=== PATIENT | female | born 1985 | race Caucasian/White ===

== ENCOUNTER 2018-05-05 10:43 | Outpatient (CLI) | payer BC, OTHER ==
[~2018-05-05] VITALS: Ht 157.5 cm; Wt 56.5 kg
[2018-05-05 11:00] VITALS: BP 129/79
[2018-05-05 11:14] LABS: BILIRUBIN,URINE NEGATIVE (NEGATIVE); CLARITY,URINE CLEAR; COLOR,URINE YELLOW; GLUCOSE, URINE (UA) NEGATIVE (NEGATIVE); KETONES,URINE NEGATIVE (NEGATIVE); LEUKOCYTE ESTERASE ,URINE NEGATIVE (NEGATIVE); NITRITE,URINE NEGATIVE (NEGATIVE); PH,URINE 7 (5-9); PROTEIN,URINE NEGATIVE (NEGATIVE); UROBILINOGEN,URINE NORMAL (NORMAL)
[2018-05-05 11:24] LABS: BACTERIA,URINE FEW /HPF; WBC,URINE 0-2 /HPF
--- NOTE | 2018-05-05 12:00 | History & Physical-OB ---
OB - Chief Complaint & HPI Date/Time Date of Admission: Date of Admission: Chief Complaint/History Hx : 2 Hx Para: 0 Expected Date of Delivery: Jul 31, 2018 Gestational Age in Weeks: 27 Allergies and Home Medications Allergies Coded Allergies: No Known Drug Allergies (Unverified , 05/05/18) OB - History Hx of Present Care: Yes Obstetrical History Hx : 2 Hx Para: 0 Hx Total # of Abortions (Spona: 1 Social History/Family History Recent Infectious Disease Expo: No OB - Admission Exam Labs Laboratory Tests Test 05/05/18 11:00 Range/Units Urine Color YELLOW Urine Clarity CLEAR Urine pH 7 5-9 Urine Specific [place] 1.005 L 1.016-1.022 Urine Protein NEGATIVE NEGATIVE Urine Glucose (UA) NEGATIVE NEGATIVE Urine Ketones NEGATIVE NEGATIVE Urine Nitrite NEGATIVE NEGATIVE Urine Bilirubin NEGATIVE NEGATIVE Urine Urobilinogen NORMAL NORMAL MG/DL Urine Leukocyte Esterase NEGATIVE NEGATIVE Urine RBC (Auto) NEGATIVE NEGATIVE Urine RBC NONE /HPF Urine WBC 0-2 /HPF Urine Squamous Epithelial Cells 10-25 H /HPF Urine Crystals NONE /LPF Urine Bacteria FEW H /HPF Urine Casts NONE /LPF Urine Mucus NEGATIVE /LPF Urine Culture Indicated NO LAITH ALBA DO May 05, 2018 12:00
--- NOTE | 2018-05-05 12:49 | Diagnostic Imaging Report ---
INDICATION: Premature rupture of membranes. FINDINGS: Biophysical profile was performed. A single live fetus is present. heart rate was recorded at 147 beats per minute. Amniotic fluid index is 14.9 cm. Overall, biophysical profile score is normal at 8 out 8. IMPRESSION: Normal biophysical profile score of 8 out 8. Dictated by: Dictated on workstation # [id number]
--- NOTE | 2018-05-09 13:41 | Physician Query-Final Dx ---
LOBITO MONTALVO 05/09/18 1341: Clinic Account Progress/Dx Physician Query: Please give diagnosis Date of Service May 05, 2018 at 10:43 LAITH ALBA DO 05/10/18 1745: Clinic Account Progress/Dx DIAGNOSIS: Diagnosis Vaginal Discharge 27 4/7 weeks Gestation History of loss, currently Hypothyroidism LOBITO OMNTALVO May 09, 2018 13:41 LAITH ALBA DO May 10, 2018 17:45
== END 2018-05-05 12:45 | disposition home or self-care (01) ==
LOC: LDRP 10:43 → WSo 10:43
PROVIDERS: ATTEND Family Medicine
DX: O99.89 Other specified diseases and conditions complicating pregnancy, childbirth and the puerperium (principal); N89.8 Other specified noninflammatory disorders of vagina; O99.282 Endocrine, nutritional and metabolic diseases complicating pregnancy, second trimester; E03.9 Hypothyroidism, unspecified; Z3A.27 27 weeks gestation of pregnancy
CPT/HCPCS: 76819; 81000; 99213

== ENCOUNTER 2018-06-16 17:24 | Outpatient (CLI) | payer BC ==
[2018-06-16 18:08] VITALS: BP 136/82
--- NOTE | 2018-06-20 15:03 | Physician Query-Final Dx ---
Clinic Account Progress/Dx Physician Query: Please give diagnosis Please provide dx and weeks of gestation. Date of Service Jun 16, 2018 at 17:24 EVAN SAGE Jun 20, 2018 15:03
== END 2018-06-16 18:05 | disposition home or self-care (01) ==
LOC: LDRP 17:24 → WSo 17:24
PROVIDERS: ATTEND Family Medicine
CPT/HCPCS: 99212

== ENCOUNTER → 2018-07-29 | Outpatient (CLI) | payer BC ==
[2018-07-29 13:38] LABS: BASOPHILS % (AUTO) 0 % (0-10); EOSINOPHILS # (AUTO) 0.1 10^3/uL (0.0-0.3); EOSINOPHILS % (AUTO) 1 % (0-10); HEMATOCRIT 42 % (35-52); HEMOGLOBIN 13.9 G/DL (11.5-16.0); LYMPHOCYTES # (AUTO) 2.5 X 10^3 (1.0-4.0); LYMPHOCYTES % (AUTO) 37 % (12-44); MEAN CORPUSCULAR HEMOGLOBIN 30 PG (25-34); MEAN CORPUSCULAR HGB CONC 33 G/DL (32-36); MEAN CORPUSCULAR VOLUME 90 FL (80-99); MEAN PLATELET VOLUME 8.6 FL (7.4-10.4); MONOCYTES # (AUTO) 0.5 X 10^3 (0.0-1.0); MONOCYTES % (AUTO) 7 % (0-12); NEUTROPHILS # (AUTO) 3.7 X 10^3 (1.8-7.8); NEUTROPHILS % (AUTO) 55 % (42-75); PLATELET COUNT 474 10^3/uL (130-400); RED CELL DISTRIBUTION WIDTH 14.9 % (10.0-14.5); WHITE BLOOD COUNT 6.8 10^3/uL (4.3-11.0)
== END ==
LOC: LAB 13:27
PROVIDERS: ATTEND Obstetrics & Gynecology
DX: R10.2 Pelvic and perineal pain (principal)
CPT/HCPCS: 36415; 85025

== ENCOUNTER 2018-09-08 10:00 | Emergency (ER) | payer BC, MEDICAID ==
[~2018-09-08] VITALS: Ht 157.5 cm; Wt 54.4 kg
--- OUTSIDE RECORDS SUMMARY | 2018-09-08 10:38 | XMS REPORT | Continuity of Care Document ---
Author Author [facility] Organization [facility] Address Unknown Phone Unavailable Allergies Active Description Code Type Severity Reaction Onset Reported/Identified Relationship to Patient Clinical Status Yes No Known Drug Allergies [id number] Drug Allergy Unknown N/A 05/05/2018 Yes tetanus and diphtheria toxoids tetanus and diphtheria toxoids Drug Allergy Severe RACING HEART, RING AROUND SITE 07/16/2018 Medications There is no data. Problems Date Dx Coded Attending Type Code Diagnosis Diagnosed By 05/05/2018 Ot E03.9 HYPOTHYROIDISM, UNSPECIFIED 05/05/2018 Ot N89.8 OTHER SPECIFIED NONINFLAMMATORY DISORDER 05/05/2018 Ot O99.282 ENDO, NUTRITIONAL AND METAB DISEASES COM 05/05/2018 Ot O99.89 OTH DISEASES AND CONDITIONS COMPL PREG/C 05/05/2018 Ot Z3A.27 27 WEEKS GESTATION OF 06/16/2018 ROOPA GÓMEZ DO Ot O36.8130 DECREASED MOVEMENTS, THIRD TRIMEST 06/16/2018 ROOPA GÓMEZ DO Ot Z3A.33 33 WEEKS GESTATION OF 07/15/2018 ROOPA GÓMEZ DO Ot O36.8130 DECREASED MOVEMENTS, THIRD TRIMEST 07/15/2018 GÓMEZ ROOPA LOPEZ Ot Z3A.33 33 WEEKS GESTATION OF 07/16/2018 Nieves Mc MD E03.9 HYPOTHYROIDISM, UNSPECIFIED 07/16/2018 Nieves Mc MD J06.9 ACUTE UPPER RESPIRATORY INFECTION, UNSPECIFIED 07/16/2018 Nieves Mc MD O13.3 GESTATIONAL HTN W/O SIGNIFICANT PROTEINURIA, THIRD TRIMESTER 07/16/2018 Nieves Mc MD O13.4 GESTATNL HTN WITHOUT SIGNIFICANT PROTEIN, COMP CHI 07/16/2018 Nieves Mc MD O42.02 FULL-TERM DERRICK ROM, ONSET LABOR WITHIN 2 07/16/2018 Nieves Mc MD O70.1 SECOND DEGREE PERINEAL LACERATION DURING DELIVERY 07/16/2018 Nieves Mc MD O99.284 ENDOCRINE, NUTRITIONAL AND METABOLIC DISEASES COMP 07/16/2018 Nieves Mc MD O99.513 DISEASES OF THE RESP SYS COMP , THIRD TRI 07/16/2018 Nieves Mc MD Z37.0 SINGLE LIVE 07/16/2018 Nieves Mc MD Z3A.37 37 WEEKS GESTATION OF 08/01/2018 NIEVES MC MD, Ot R10.2 PELVIC AND PERINEAL PAIN 08/01/2018 NIEVES MC MD, Ot R10.2 PELVIC AND PERINEAL PAIN Procedures Code Description Performed By Performed On [id number] REPAIR PERINEUM MUSCLE, OPEN APPROACH Gwen Chavez MD 07/16/2018 [id number] DRAINAGE OF AMNIOTIC FL, THERAP FROM POC, VIA OPEN Gwen Chavez MD [id number] DELIVERY OF PRODUCTS OF CONCEPTION, EXTERNAL APPRO Gwen Chavez MD [id number] INTRODUCTION OF OTH HORMONE INTO PERIPH VEIN, PERC Gwen Chavez MD 07/16/2018 Results Test Result Range Complete urinalysis with reflex to culture - 05/05/18 11:00 Urine color determination YELLOW NRG Urine clarity determination CLEAR NRG Urine pH measurement by test strip 7 5-9 Specific gravity of urine by test strip 1.005 1.016- 1.022 Urine protein assay by test strip, semi-quantitative NEGATIVE NEGATIVE Urine glucose detection by automated test strip NEGATIVE NEGATIVE Erythrocytes detection in urine sediment by light microscopy NEGATIVE NEGATIVE Urine ketones detection by automated test strip NEGATIVE NEGATIVE Urine nitrite detection by test strip NEGATIVE NEGATIVE Urine total bilirubin detection by test strip NEGATIVE NEGATIVE Urine urobilinogen measurement by automated test strip (mass/volume) NORMAL NORMAL Urine leukocyte esterase detection by dipstick NEGATIVE NEGATIVE Automated urine sediment erythrocyte count by microscopy (number/high power field) NONE NRG Automated urine sediment leukocyte count by microscopy (number/high power field ) [HPF] NRG Bacteria detection in urine sediment by light microscopy FEW NRG Squamous epithelial cells detection in urine sediment by light microscopy 10-25 NRG Crystals detection in urine sediment by light microscopy NONE NRG Casts detection in urine sediment by light microscopy NONE NRG Mucus detection in urine sediment by light microscopy NEGATIVE NRG Complete urinalysis with reflex to culture NO NRG UR PROTEIN/CREATININE RATION - 07/16/18 13:20 UR CREATININE COMMENT RANDOM UR PROTEIN COMMENT RANDOM UR TOTAL PROTEIN LEVEL < 5.0 mg/dL 0.0-11.9 UR CREATININE LEVEL < 13.0 mg/dL 44-467 UR PROTEIN/CREATININE RATIO TEST NOT PERFORMED mg/gm < 200 CBC - 07/16/18 13:20 MEAN CELL HGB 29.4 pg 27.0-33.0 MEAN CELL HGB CONCENTRATION 33.4 g/dL 32.0-37.0 MEAN CELL VOLUME 88.1 fl 80.0-100.0 MEAN PLATELET VOLUME 11.2 fl 8.5-10.9 RED BLOOD CELL 4.28 m/cumm 4.00-6.00 RED CELL DISTRIBUTION WIDTH 15.7 % 11.0-15.6 WHITE BLOOD CELL 9.6 k/cumm 5.0-10.0 HEMOGLOBIN 12.6 gm/dL 12.0-16.0 HEMATOCRIT 37.7 % 37.0-47.0 NRBC % 0.0 /100 WBC 0.0-0.0 PLATELET COUNT 194 k/cumm 150-400 METABOLIC PANEL, COMPREHN - 07/16/18 13:20 POTASSIUM 3.6 mmol/L 3.5-5.3 EST GFR (MDRD) > 60 mL/min > 59 ANION GAP 8 mmol/L 5-15 EST CrCl (CG) > 60 mL/min > 59 GLUCOSE 95 mg/dL 70-99 CALCIUM 8.4 mg/dL 8.5-10.1 BLOOD UREA NITROGEN 8 mg/dL 7-20 CREATININE 0.6 mg/dL 0.6-1.0 SODIUM 138 mmol/L 135-148 CHLORIDE 107 mmol/L 98-110 AST/SGOT 25 Units/L 10-37 ALT/SGPT 28 Units/L < 66 CARBON DIOXIDE 23 mmol/L 21-32 TOTAL PROTEIN 7.4 gm/dL 6.4-8.2 ALBUMIN 3.0 gm/dL 3.4-5.0 BILI TOTAL 0.1 mg/dL 0.0-1.0 ALKALINE PHOSPHATASE TOTAL 148 IU/L 45-117 URIC ACID - 07/16/18 13:20 URIC ACID 5.1 mg/dL 2.6-6.0 LACTATE DEHYDROGENASE (LDH/LD) - 07/16/18 13:20 LACTATE DEHYDROGENASE (LDH/LD) 187 Units/L 81-234 CORD VENOUS BLOOD GAS - 07/17/18 18:20 VENOUS CORD BLOOD BASE EXCESS -3.8 meq/L -5.8-0.7 COMMENT VENOUS VENOUS CORD BLOOD HCO3 22.3 meq/L 17.4-25.4 VENOUS CORD BLOOD PCO2 44 mm Hg 28-57 VENOUS CORD BLOOD PH 7.32 7.23-7.46 VENOUS CORD BLOOD PO2 31 mm Hg 15-42 VENOUS CORD BLOOD O2 SAT 53 % 14-75 CORD ARTERIAL BLOOD GAS - 07/17/18 18:20 ARTERIAL CORD BLD BASE EXCESS -6.0 meq/L -7.6-1.3 COMMENT ARTERIAL ARTERIAL CORD BICARBONATE 17.0 meq/L 16.0-27.1 ARTERIAL CORD BLOOD PCO2 28 mm Hg 32-69 ARTERIAL CORD BLOOD PH 7.41 7.14-7.40 ARTERIAL CORD BLOOD PO2 112.2 mm Hg 8-33 ARTERIAL CORD BLOOD O2 SAT 98 % 5-59 HEMOGLOBIN - 07/17/18 22:42 MEAN CELL VOLUME 88.7 fl 80.0-100.0 HEMOGLOBIN 10.9 gm/dL 12.0-16.0 Complete blood count (CBC) with automated white blood cell (WBC) differential - 07/29/18 13:35 Blood leukocytes automated count (number/volume) 6.8 10*3/uL 4.3-11.0 Blood erythrocytes automated count (number/volume) 4.70 10*6/uL 4.35-5.85 Venous blood hemoglobin measurement (mass/volume) 13.9 g/dL 11.5-16.0 Blood hematocrit (volume fraction) 42 % 35-52 Automated erythrocyte mean corpuscular volume 90 [foz_us] 80-99 Automated erythrocyte mean corpuscular hemoglobin (mass per erythrocyte) 30 pg 25-34 Automated erythrocyte mean corpuscular hemoglobin concentration measurement ( mass/volume) 33 g/dL 32-36 Automated erythrocyte distribution width ratio 14.9 % 10.0-14.5 Automated blood platelet count (count/volume) 474 10*3/uL 130-400 Automated blood platelet mean volume measurement 8.6 [foz_us] 7.4-10.4 Automated blood neutrophils/100 leukocytes 55 % 42-75 Automated blood lymphocytes/100 leukocytes 37 % 12-44 Blood monocytes/100 leukocytes 7 % 0-12 Automated blood eosinophils/100 leukocytes 1 % 0-10 Automated blood basophils/100 leukocytes 0 % 0-10 Blood neutrophils automated count (number/volume) 3.7 10*3 1.8-7.8 Blood lymphocytes automated count (number/volume) 2.5 10*3 1.0-4.0 Blood monocytes automated count (number/volume) 0.5 10*3 0.0-1.0 Automated eosinophil count 0.1 10*3/uL 0.0-0.3 Automated blood basophil count (count/volume) 0.0 10*3/uL 0.0-0.1 Encounters ACCT No. Visit Date/Time Discharge Status Pt. Type Provider Facility Loc./Unit Complaint [id number] 08/30/2018 15:16:00 08/30/2018 23:59:59 CLS Preadmit Alexandro GARCIA [facility] W.2WE [id number] 07/16/2018 14:39:00 07/19/2018 12:00:00 DIS Inpatient Alexandro GARCIA, [facility] W.5WH [id number] 07/29/2018 13:27:00 07/29/2018 23:59:59 CLS Outpatient ALEXANDRO GARCIA [facility] LAB R10.2 [id number] 06/16/2018 17:24:00 06/16/2018 18:05:00 DIS Outpatient ROOPA GÓMEZ DO [facility] WSo DECREASED MOVEMENT [id number] 09/08/2018 10:03:00 ACT Emergency ANJU FOY MD [facility] ER NURSING ISSUES BREASTS ENGORGED/ PAINFUL [id number] 05/05/2018 11:24:00 Document Registration
--- NOTE | 2018-09-08 11:59 | ED General ---
General Chief Complaint: General Problems/Pain Stated Complaint: NURSING ISSUES BREASTS ENGORGED/PAINFUL Nursing Triage Note: Pt reports she is 8 wks post- and has had issues w/ . She exclusively pumps and has issues w/ breast engorgement. Pt reports she sees a product marketing consultant and can usually relieve engorgement at home with variety of methods but has been unable to relieve engorgement this time. Pt reports R breast engorgement and pain since last night. Nursing Sepsis Screen: No Definite Risk Source of Information: Patient Exam Limitations: No Limitations History of Present Illness Date Seen by Provider: Sep 08, 2018 Time Seen by Provider: 11:54 Initial Comments To ER with reports of right breast engorgement. She is 8 weeks . She is exclusively uses a breast pump then places this and a bottle for baby as he has had trouble with breast feeding. She does see a product marketing consultant and [place] where she delivered. She lives in [place]. She has tried warm showers , massage and warm compresses to the breast but still feels very engorged for about 24 hours. No fevers or chills. She pumps about every 4-5 hours which is a change, she started this just a few days ago, prior to that she was pumping about every 2-3 hours. Timing/Duration: 1-2 Days Severity: Moderate Associated Systoms: No Nausea/Vomiting Allergies and Home Medications Allergies Coded Allergies: No Known Drug Allergies (Unverified , 05/05/18) Home Medications No Active Prescriptions or Reported Meds Patient Home Medication List Home Medication List Reviewed: Yes Review of Systems Review of Systems Constitutional: see HPI; No chills, No fever EENTM: see HPI Respiratory: no symptoms reported Cardiovascular: no symptoms reported Genitourinary: no symptoms reported Musculoskeletal: no symptoms reported Skin: no symptoms reported Psychiatric/Neurological: No Symptoms Reported Hematologic/Lymphatic: No Symptoms Reported Past Bqccqri-Uprsfm-Btxclk Hx Patient Social History Alcohol Use: Denies Use Recreational Drug Use: No Smoking Status: Never a Smoker 2nd Hand Smoke Exposure: No Recent Foreign Travel: No Contact w/Someone Who Travel: No Recent Infectious Disease Expo: No Recent Hopitalizations: Yes (DELIVERY 8 WEEKS AGO) Immunizations Up To Date Tetanus Booster (TDap): Unknown Past Medical History Surgeries: No Respiratory: No Cardiac: No Neurological: No Sexually Transmitted Disease: No HIV/AIDS: No Genitourinary: No Gastrointestinal: No Musculoskeletal: No Endocrine: No HEENT: No Cancer: No Psychosocial: No Integumentary: No Blood Disorders: No Physical Exam Vital Signs Vital Signs - First Documented 09/08/18 10:13 Temp 98.0 Pulse 89 Resp 18 B/P (MAP) 136/78 (97) Pulse Ox 97 O2 Delivery Room Air Capillary Refill : Less Than 3 Seconds Height, Weight, BMI Height: 5'2.00" Weight: 120lbs. 8.0oz. 54.899903mc; 22.8 BMI Method:Stated General Appearance: No Apparent Distress, WD/WN Eyes: Bilateral Eye Normal Inspection, Bilateral Eye PERRL, Bilateral Eye EOMI HEENT: PERRL/EOMI, TMs Normal Neck: Full Range of Motion, Normal Inspection Respiratory: No Accessory Muscle Use, No Respiratory Distress Cardiovascular: Regular Rate, Rhythm, Normal Peripheral Pulses Neurologic/Psychiatric: Alert, Oriented x3 Skin: Normal Color, Warm/Dry, Other (there is no erythema of the breast or fissures nipple/areola. She is engorged and firm from about the 1:00 to 5:00 position of the right breast) Progress/Results/Core Measures Suspected Sepsis Recent Fever Within 48 Hours: No Infection Criteria Present: None New/Unexplained Altered Menta: No Sepsis Screen: No Definite Risk SIRS Temperature:98.0 Pulse: 89 Respiratory Rate: 18 Blood Pressure 136 /78 Mean: 97 Results/Orders Vital Signs/I&O 09/08/18 10:13 Temp 98.0 Pulse 89 Resp 18 B/P (MAP) 136/78 (97) Pulse Ox 97 O2 Delivery Room Air Capillary Refill : Less Than 3 Seconds Blood Pressure Mean: 97 Departure Communication (Admissions) Due to the possibility of mastitis I will prescribe some Keflex. I have also referred her to product marketing consultant Alcira here at the hospital. We will discharge her from the ER directly to Alcira's office Impression Primary Impression: Breast engorgement Disposition: 01 HOME, SELF-CARE Condition: Stable Departure-Patient Inst. Decision time for Depature: 11:58 Referrals: ROBYN CHATTERJEE MD (PCP/Family) Primary Care Physician Patient Instructions: , Common Problems Add. Discharge Instructions: 1. Go from here directly to Livia's office who should be most helpful in resolving her breast engorgement. Take antibiotics as directed due to the possibility of mastitis, an infection of the breast. These have been sent electronically to [facility] All discharge instructions reviewed with patient and/or family. Voiced understanding. Scripts Cephalexin (Keflex) 500 Mg Capsule 500 MG PO QID, #28 CAP Prov: BERNY TRUJILLO APRN 09/08/18 BERNY TRUJILLO APRN Sep 08, 2018 11:59
[2018-09-08] MEDS ORDERED: CEPH-507 PO (12:00)
[2018-09-08 12:11] VITALS: BP 136/78
== END 2018-09-08 12:14 | disposition home or self-care (01) ==
LOC: EDUNIT# 10:00 → ER 10:03
DX: N64.59 Other signs and symptoms in breast (principal)
CPT/HCPCS: 99281

== ENCOUNTER 2018-09-08 12:17 | Outpatient (RCR) | payer MEDICAID ==
[~2018-09-08 12:17] MED LIST: CEPH-507 PO
== END 2018-12-07 | disposition home or self-care (01) ==
LOC: WSo 12:17
PROVIDERS: ATTEND Nurse Practitioner Family
DX: O92.79 Other disorders of lactation (principal)
CPT/HCPCS: 99211

== ENCOUNTER 2020-02-23 08:34 | Outpatient (RCR) | payer BC, MEDICAID ==
[~2020-02-23] VITALS: Ht 157.5 cm; Wt 54.5 kg
[~2020-02-23 08:34] MED LIST changes: +BACI1TAB3 PO; +CETI10TA21 PO; +MULT-884 PO; +OMEP20TA7 PO
[2020-02-28] MEDS ORDERED: PANT40TA2 PO (11:34)
== END 2020-02-23 14:27 | disposition home or self-care (01) ==
LOC: PREOP 08:34
PROVIDERS: ATTEND Surgery
DX: Z01.818 Encounter for other preprocedural examination (principal); Z11.59 Encounter for screening for other viral diseases
CPT/HCPCS: 87635